=== PATIENT | female | born 1965 | race Caucasian/White ===

== ENCOUNTER 2017-12-23 06:33 | Inpatient (IN) | payer OTHER ==
[2017-12-23] MEDS ORDERED: BUPIVACAINE 0.75%/DEXT (SPINAL) 2 ML INJ (07:00)
[2017-12-23] MEDS ORDERED: GLYCOPYRROLATE 0.4 MG INJ (07:55)
[2017-12-23] MEDS ORDERED: MIDAZOLAM 1 MG/ML 2 ML INJ (07:55)
[2017-12-23] MEDS ORDERED: CEFAZOLIN 1 GM INJ (07:55)
[2017-12-23] MEDS ORDERED: ROCURONIUM 50 MG INJ (07:55)
[2017-12-23] MEDS ORDERED: PROPOFOL 20 ML (07:55)
[2017-12-23] MEDS ORDERED: NEOSTIGMINE 3 MG/3 ML SYRINGE (07:55)
[2017-12-23] MEDS ORDERED: ONDANSETRON 4 MG INJ (07:56)
[2017-12-23] MEDS ORDERED: FENTAnyl 50 MCG/ML VIAL (07:56)
[2017-12-23] MEDS ORDERED: DEXAMETHASONE 4 MG/ML 1 ML INJ (07:56)
[2017-12-23] MEDS ORDERED: morphine SULFATE/PF (10 MG/10 ML) INJ (07:58)
[2017-12-23] MEDS ORDERED: ROPIVACAINE 0.5 % 30 ML VIAL (08:41)
[2017-12-23] MEDS: BACITRACIN 50000 UNITS INJ IRR (09:06)
[2017-12-23] MEDS: POLYMYXIN B 500000 UNIT INJ (09:06)
[2017-12-23] MEDS ORDERED: DIPHENHYDRAMINE 50 MG INJ IV ×2 (09:30)
[2017-12-23] MEDS ORDERED: EPHEDrine SULFATE 50 MG/5 ML SYG IV (09:30)
[2017-12-23] MEDS ORDERED: NALBUPHINE HCL (10 MG/1 ML) INJ IV (09:30)
[2017-12-23] MEDS ORDERED: ZOLPIDEM 5 MG TAB PO (09:30)
[2017-12-23] MEDS ORDERED: HYDROmorphONE 1 MG/5 ML IV SYRINGE IV ×2 (09:30)
[2017-12-23] MEDS ORDERED: LABETALOL HCL 20MG INJ IV (09:30)
[2017-12-23] MEDS: TRANEXAMIC ACID 1,000 MG/10 ML VIAL IRR (09:30)
[2017-12-23] MEDS ORDERED: HYDROmorphONE 0.5 MG/0.5 ML SYG IV ×2 (09:30)
[2017-12-23] MEDS ORDERED: MIDAZOLAM 1 MG/ML 2 ML INJ IV (09:30)
[2017-12-23] MEDS ORDERED: hydrALAzine 20 MG INJ IV (09:30)
[2017-12-23] MEDS ORDERED: FENTAnyl 50 MCG/ML VIAL IV ×3 (09:30)
[2017-12-23] MEDS ORDERED: MEPERIDINE 25 MG INJ IV (09:30)
[2017-12-23] MEDS ORDERED: IPRATROPIUM (NEB) 0.5 MG/2.5 ML AMP HHN (09:30)
[2017-12-23] MEDS ORDERED: ONDANSETRON 4 MG INJ IV ×2 (09:30)
[2017-12-23] MEDS ORDERED: ALBUTEROL 0.083% (NEB) 2.5 MG/3 ML AMP HHN (09:30)
[2017-12-23] MEDS ORDERED: NALOXONE (0.4 MG/ML) INJ IV ×2 (09:30→11:30)
[2017-12-23] MEDS ORDERED: TRIMETHOBENZAMIDE 100 MG/ML VIAL IM (09:30)
[2017-12-23] MEDS ORDERED: SUGAMMADEX SODIUM 200 MG/2 ML VIAL IV (10:27)
[2017-12-23] MEDS ORDERED: MAGNESIUM HYDROXIDE 30ML CUP PO (11:30)
[2017-12-23] MEDS ORDERED: DIPHENHYDRAMINE 50 MG INJ IM (11:30)
[2017-12-23] MEDS ORDERED: BETHANECHOL 25 MG TAB PO (11:30)
[2017-12-23] MEDS: CEFAZOLIN 1 GM/50 ML (PMX) 50 ML IVPB ×2 (11:50→20:25)
[2017-12-23] MEDS: HYDROmorphONE 1 MG/5 ML IV SYRINGE IV (11:50)
[2017-12-23] MEDS: DOCUSATE SODIUM 100 MG CAP PO (11:50)
[2017-12-23] MEDS: ONDANSETRON 4 MG INJ IV ×3 (11:50→23:55)
[2017-12-23] MEDS: KETOROLAC 30 MG INJ IV (16:00)
[2017-12-23] MEDS: SERTRALINE 100 MG TAB PO (18:30)
[2017-12-23] MEDS: LACTATED RINGER'S 1,000 ML IV (18:48)
[2017-12-23] MEDS: GABAPENTIN 300 MG CAP PO (20:25)
[2017-12-23] MEDS: BUSPIRONE 10 MG TAB PO (20:25)
[2017-12-23] MEDS: TRIMETHOBENZAMIDE 100 MG/ML VIAL IM (20:30)
[2017-12-24] MEDS: CEFAZOLIN 1 GM/50 ML (PMX) 50 ML IVPB (03:40)
[2017-12-24 05:17] LABS: ADD MAN DIFF? NO
[2017-12-24 05:25] LABS: BASOPHILS % 0.1 % (0.0-2.0); HEMOGLOBIN 10.8 g/dl (12.0-16.0); LYMPHOCYTES # 1.2 10^3/ul (0.8-2.9); LYMPHOCYTES % 11.2 % (15.0-51.0); MEAN CORPUSCULAR HEMOGLOBIN 30.8 pg (29.0-33.0); MEAN CORPUSCULAR HGB CONC 33.8 g/dl (32.0-37.0); MEAN CORPUSCULAR VOLUME 91.2 fl (82.0-101.0); MEAN PLATELET VOLUME 10.1 fl (7.4-10.4); MONOCYTE # 0.5 10^3/ul (0.3-0.9); MONOCYTES % 5.3 % (0.0-11.0); NEUTROPHIL # 8.5 10^3/ul (1.6-7.5); NEUTROPHILS % 82.9 % (39.0-77.0); PLATELET COUNT 298 10^3/UL (140-415); RED BLOOD COUNT 3.51 10^6/ul (4.20-5.40); RED CELL DISTRIBUTION WIDTH 12.6 % (11.5-14.5)
[2017-12-24 05:25] LABS: WHITE BLOOD COUNT 10.3 10^3/ul (4.8-10.8)
[2017-12-24] MEDS: PANTOPRAZOLE (EC) 40 MG TAB PO (05:43)
[2017-12-24] MEDS: LACTATED RINGER'S 1,000 ML IV ×2 (05:43→20:36)
[2017-12-24] MEDS: ONDANSETRON 4 MG INJ IV (05:44)
[2017-12-24 05:48] LABS: ANION GAP 9 (8-16); BLOOD UREA NITROGEN 12 mg/dl (7-20); CALCIUM 8.8 mg/dl (8.4-10.2); CARBON DIOXIDE 28 mmol/L (21-31); CHLORIDE 105 mmol/L (97-110); CREATININE 0.52 mg/dl (0.44-1.00); GLUCOSE 115 mg/dl (70-220); POTASSIUM 4.1 mmol/L (3.5-5.1); SODIUM 138 mmol/L (135-144)
[2017-12-24 06:36] LABS: ADD UMIC YES; UR ASCORBIC ACID NEGATIVE (NEGATIVE); UR BILIRUBIN (Dip) NEGATIVE (NEGATIVE); UR BLOOD (Dip) 2+ mg/dL (NEGATIVE); UR CLARITY TURBID (CLEAR); UR COLOR YELLOW (YELLOW); UR GLUCOSE (Dip) NEGATIVE (NEGATIVE); UR KETONES (Dip) NEGATIVE (NEGATIVE); UR LEUKOCYTE ESTERASE (Dip) NEGATIVE Leu/ul (NEGATIVE); UR MUCUS FEW /HPF (NONE SEEN); UR NITRITE (Dip) NEGATIVE (NEGATIVE); UR RBC > 182 /HPF (0-5); UR SPECIFIC GRAVITY (Dip) 1.031 (1.003-1.030); UR TOTAL PROTEIN (Dip) 1+ mg/dl (NEGATIVE); UR UROBILINOGEN (Dip) NEGATIVE (NEGATIVE); UR WBC 41 /HPF (0-5)
[2017-12-24] MEDS: morphine 2 MG INJ IV (07:22)
[2017-12-24] MEDS: SERTRALINE 100 MG TAB PO (09:21)
[2017-12-24] MEDS: CHOLECALCIFEROL 2,000 UNIT CAP PO (09:21)
[2017-12-24] MEDS: BUSPIRONE 10 MG TAB PO ×2 (09:21→20:35)
[2017-12-24] MEDS: GABAPENTIN 300 MG CAP PO ×3 (09:21→20:35)
[2017-12-24] MEDS: DOCUSATE SODIUM 100 MG CAP PO ×2 (09:22→20:35)
[2017-12-24] MEDS: CYCLOBENZAPRINE 10 MG TAB PO (09:29)
[2017-12-24] MEDS: morphine 4 MG/ML VIAL IV (12:48)
[2017-12-24] MEDS ORDERED: HYDROCODONE/APAP (5/325) TAB PO (17:00)
[2017-12-24] MEDS: HYDROCODONE/APAP (5/325) TAB PO ×2 (17:07→18:10)
[2017-12-24] MEDS: APIXABAN 5 MG TABLET PO (20:35)
[2017-12-24] MEDS: HYDROmorphONE 2 MG/ML SYG IV (22:43)
[2017-12-25] MEDS: HYDROmorphONE 2 MG/ML SYG IV ×4 (04:33→17:57)
[2017-12-25 05:05] LABS: ADD MAN DIFF? NO
[2017-12-25 05:07] LABS: BASOPHILS % 0.2 % (0.0-2.0); EOSINOPHILS % 0.1 % (0.0-7.0); HEMATOCRIT 31.2 % (37.0-47.0); LYMPHOCYTES # 2.7 10^3/ul (0.8-2.9); LYMPHOCYTES % 24.3 % (15.0-51.0); MEAN CORPUSCULAR HEMOGLOBIN 30.3 pg (29.0-33.0); MEAN CORPUSCULAR HGB CONC 32.1 g/dl (32.0-37.0); MEAN CORPUSCULAR VOLUME 94.5 fl (82.0-101.0); MEAN PLATELET VOLUME 10.1 fl (7.4-10.4); MONOCYTE # 0.9 10^3/ul (0.3-0.9); NEUTROPHIL # 7.3 10^3/ul (1.6-7.5); NEUTROPHILS % 66.9 % (39.0-77.0); PLATELET COUNT 304 10^3/UL (140-415); RED CELL DISTRIBUTION WIDTH 12.8 % (11.5-14.5)
[2017-12-25 05:20] LABS: ANION GAP 11 (8-16); BLOOD UREA NITROGEN 18 mg/dl (7-20); CALCIUM 8.6 mg/dl (8.4-10.2); CARBON DIOXIDE 29 mmol/L (21-31); CHLORIDE 103 mmol/L (97-110); CREATININE 0.61 mg/dl (0.44-1.00); GLUCOSE 112 mg/dl (70-220); POTASSIUM 3.9 mmol/L (3.5-5.1); SODIUM 139 mmol/L (135-144)
[2017-12-25] MEDS: HYDROCODONE/APAP (5/325) TAB PO ×5 (05:40→23:39)
[2017-12-25] MEDS: PANTOPRAZOLE (EC) 40 MG TAB PO (05:40)
[2017-12-25] MEDS: LACTATED RINGER'S 1,000 ML IV (08:57)
[2017-12-25] MEDS: GABAPENTIN 300 MG CAP PO ×3 (08:57→20:39)
[2017-12-25] MEDS: CHOLECALCIFEROL 2,000 UNIT CAP PO (08:57)
[2017-12-25] MEDS: DOCUSATE SODIUM 100 MG CAP PO ×2 (08:57→20:39)
[2017-12-25] MEDS: BUSPIRONE 10 MG TAB PO ×2 (08:57→20:39)
[2017-12-25] MEDS: SERTRALINE 100 MG TAB PO (08:57)
[2017-12-25] MEDS: APIXABAN 5 MG TABLET PO ×2 (08:58→20:40)
[2017-12-25] MEDS: SENNA/DOCUSATE NA (8.6MG/50MG) TAB PO (12:52)
[2017-12-26] MEDS: LACTATED RINGER'S 1,000 ML IV ×2 (00:20→13:40)
[2017-12-26 05:08] LABS: ADD MAN DIFF? NO
[2017-12-26 05:20] LABS: WHITE BLOOD COUNT 9.7 10^3/ul (4.8-10.8)
[2017-12-26 05:20] LABS: BASOPHILS % 0.3 % (0.0-2.0); EOSINOPHILS # 0.1 10^3/ul (0.0-0.5); EOSINOPHILS % 0.9 % (0.0-7.0); HEMOGLOBIN 9.6 g/dl (12.0-16.0); LYMPHOCYTES # 2.5 10^3/ul (0.8-2.9); LYMPHOCYTES % 25.6 % (15.0-51.0); MEAN CORPUSCULAR HEMOGLOBIN 30.4 pg (29.0-33.0); MEAN CORPUSCULAR VOLUME 94.9 fl (82.0-101.0); MEAN PLATELET VOLUME 10.1 fl (7.4-10.4); MONOCYTE # 0.6 10^3/ul (0.3-0.9); MONOCYTES % 6.5 % (0.0-11.0); NEUTROPHIL # 6.4 10^3/ul (1.6-7.5); NEUTROPHILS % 66.1 % (39.0-77.0); PLATELET COUNT 270 10^3/UL (140-415); RED BLOOD COUNT 3.16 10^6/ul (4.20-5.40); RED CELL DISTRIBUTION WIDTH 12.6 % (11.5-14.5)
[2017-12-26] MEDS: PANTOPRAZOLE (EC) 40 MG TAB PO (05:48)
[2017-12-26] MEDS: HYDROCODONE/APAP (5/325) TAB PO ×3 (05:50→13:57)
[2017-12-26 06:15] LABS: ANION GAP 10 (8-16); BLOOD UREA NITROGEN 12 mg/dl (7-20); CALCIUM 8.6 mg/dl (8.4-10.2); CARBON DIOXIDE 32 mmol/L (21-31); CHLORIDE 98 mmol/L (97-110); CREATININE 0.54 mg/dl (0.44-1.00); GLUCOSE 110 mg/dl (70-220); POTASSIUM 3.7 mmol/L (3.5-5.1); SODIUM 136 mmol/L (135-144)
[2017-12-26] MEDS: BUSPIRONE 10 MG TAB PO (08:34)
[2017-12-26] MEDS: SERTRALINE 100 MG TAB PO (08:35)
[2017-12-26] MEDS: GABAPENTIN 300 MG CAP PO ×2 (08:35→13:57)
[2017-12-26] MEDS: APIXABAN 5 MG TABLET PO (08:35)
[2017-12-26] MEDS: CHOLECALCIFEROL 2,000 UNIT CAP PO (08:36)
[2017-12-26] MEDS: DOCUSATE SODIUM 100 MG CAP PO (08:36)
== END 2017-12-26 16:45 | disposition home health service (06) | DRG 470 ==
LOC: REC 06:33 → MS1 12:22
PROC: 0SRC0J9 Replacement of Right Knee Joint with Synthetic Substitute, Cemented, Open Approach (ICD-10-PCS; principal; 2017-12-23 08:00)
DX: M17.11 Unilateral primary osteoarthritis, right knee (principal); F32.9 Major depressive disorder, single episode, unspecified; E78.5 Hyperlipidemia, unspecified; M79.7 Fibromyalgia
CPT/HCPCS: 73560; 80048; 81001; 85025; 87086; 88304; 88311; 97110; 97116; 97161; 97530